=== PATIENT | female | born 1930 | race Caucasian/White ===

== ENCOUNTER 2018-07-04 12:22 | Inpatient (IN) | payer OTHER, BC ==
[~2018-07-04] VITALS: Ht 180.3 cm; Wt 72.6 kg
[2018-07-04 12:23] VITALS: BP 157/132
[2018-07-04] MEDS ORDERED: OXYCODONE HCL5 MG PO (12:32)
[2018-07-04] MEDS ORDERED: ATORVASTATIN CA40 MG PO (12:33)
[2018-07-04] MEDS ORDERED: CELEBREX 200 M200 M1 PO (12:33)
[2018-07-04] MEDS ORDERED: PLAVIX 75 MG TA75 M1 PO (12:33)
[2018-07-04] MEDS ORDERED: TYLENOL EXTRA500 MG PO (12:33)
[2018-07-04] MEDS ORDERED: CLARITIN10 MG PO (12:34)
[2018-07-04] MEDS ORDERED: FLONASE 0.05%50 MCG NASAL (12:34)
[2018-07-04] MEDS ORDERED: NEURONTIN 300300 M1 PO (12:35)
[2018-07-04] MEDS ORDERED: JANUVIA 50 MG T50 M1 PO (12:35)
[2018-07-04] MEDS ORDERED: LISINOPRIL2.5 MG PO (12:35)
[2018-07-04] MEDS ORDERED: GLUCOTROL5 MG PO (12:35)
[2018-07-04] MEDS ORDERED: LOPRESSOR25 PO (12:36)
[2018-07-04] MEDS ORDERED: NITROGLYCERIN0.4 MG SUBLING (12:36)
[2018-07-04 13:54] LABS: ABSOLUTE NEUTROPHILS 14.8 thou/uL (1.4-8.2); BASOPHILS 0.6 % (0.0-2.0); HEMATOCRIT 36.7 % (37.0-47.0); HEMOGLOBIN 12.6 gm/dL (12.0-15.0); LYMPHOCYTES 5.5 % (24.0-44.0); MCH 29.2 pg (26.0-34.0); MCHC 34.3 g/dL (28.0-37.0); MCV 85.2 fL (80.0-100.0); PLATELET COUNT 354 thou/uL (150-400); POLYS 87.9 % (36.0-66.0); RBC 4.31 mil/uL (4.20-5.00); RDW 14.1 % (10.5-14.5); WBC 16.9 thou/uL (4.0-11.0)
[2018-07-04 14:03] LABS: CALCIUM 9.8 mg/dL (8.5-10.1); CREATININE 0.8 mg/dL (0.6-1.0)
[2018-07-04 14:08] LABS: ALBUMIN 3.5 g/dL (3.4-5.0); DIRECT BILIRUBIN 0.2 mg/dL (<0.1-0.3); TOTAL BILIRUBIN 0.9 mg/dL (<0.1-1.0)
[2018-07-04 14:09] LABS: URINE CLARITY CLEAR; URINE COLOR YELLOW; URINE SPECIFIC GRAVITY 1.025 (1.005-1.035)
[2018-07-04 14:10] LABS: URINE BILIRUBIN NEGATIVE (Negative); URINE BLOOD NEGATIVE (Negative); URINE GLUCOSE-RANDOM* NEGATIVE (Negative); URINE KETONES 1+ (Negative); URINE LEUKOCYTES-REFLEX TRACE (Negative); URINE NITRITE-REFLEX NEGATIVE (Negative); URINE PROTEIN (DIPSTICK) NEGATIVE (Negative); URINE UROBILINOGEN 0.2 E.U./dl (0.2-1.0)
[2018-07-04 16:12] VITALS: BP 109/49
[2018-07-04 18:11] VITALS: BP 97/51
--- NOTE | 2018-07-04 18:38 | NUR ---
ASSUMED CARE OF PT AT 1830. PT ARRIVED FROM ED INTO ROOM IN STABLE CONDITION. PT ORIENTED TO ROOM AND CALL LIGHT. ADMISSION ORIENTATION AND HISTORY COMPLETED. VSS. FAMILY AT BEDSIDE. BELONGINGS DOCUMENTED. PT CONFUSED, BED ALARM ON, FALL RISK PRECAUTIONS IN PLACE. WILL CONTINUE TO MONITOR.
[2018-07-04 18:47] VITALS: BP 92/48
[2018-07-04 19:41] VITALS: BP 119/67
--- NOTE | 2018-07-04 20:15 | NUR ---
Pt. pulled out her iv and just now starting to get agitated. This nurse able to restart her iv. She is alert and oriented times one to self. Pt. wanting her cat and oriented to place. Explained to pt. that cats were not allowed into the hospital. Admission assessment completed, but unable to complete some parts due to pt. cognition and mental state. Pt. becoming more irritable and unable to reorient her. She would not stay in the bed and at times would yell outloud. She has been toileted several times. Call placed to Cielo ALLAN with new order to give one time ivp haldol (see orders). Called grand- daughter (Dulce Maria) and she was informed of pt. behavior, but no family member availabe to sit with her. She expressed that this is her normal behavior. Pt. placed in wheelchair and brought out to the nurses station with staff member. Ivp haldol was given (see emar).
--- NOTE | 2018-07-04 21:00 | NUR ---
Pt. assisted to bed and then wanted to get back up. Pulling off her tele monitor. Pt. becoming aggressive with the staff. Would not follow simple tasks. supervisor refractory products updated on this pt. behavior. Pt. did settle down around 2200. Bed alarm is on. Resting quietly in the bed.
[2018-07-05] MEDS ORDERED: PROTONIX40 M1 PO (01:34)
[2018-07-05 04:54] VITALS: BP 111/32
--- NOTE | 2018-07-05 07:00 | NUR ---
Pt. rested quietly during the night when checked on during the night. She did start to yell out this am and was assisted to the bedside comode. Bed alarm is on.
[2018-07-05 07:42] VITALS: BP 102/49
--- NOTE | 2018-07-05 10:16 | NUR ---
CM CONSULTED FOR DCP. JESSEE IS A & O X 2-3 WITH FORGETFULNESS. PT UP IN BED WITH EX-DAUGHTER ROSALIO IN-LAW AT BEDSIDE PROVIDING SOME NAIL CARE FOR JESSEE, " OK TO VISIT"/JESSEE. INTRO TO CM, TRANSITION OF CARE, POST ACUTE REHAB, AND HOME HEALTH. PT AND FAMILY REPORTED " LIVE IN APARTMENT, ASSIST[place] AT [facility] [place] 4TH FLOOR, USE ELEVATOR AND IT IS WALK OUT LEVEL WITH THE HILLSIDE. USE WALKER. LAST WEEK NOTICED WHEEL CHAIR IN HER ROOM AND HAVE NOT BEEN ABLE TO SPEAK WITH SOMEONE ABOUT WHEEL CHAIR. I GO WEEKLY TO VISIT HER. FACILITY PROVIDED 3 MEALS, HELP WITH BATHING, HAS SHOWER CHAIR. HAS LIFT ALERT NECKLACE, BUT SHE DOESNT REMEMBER TO USE IT. HAS CALL LIGHT IN BATHROOM AND NEXT TO BED. THEY ASSIST WITH GIVING HER MEDICATIONS."/JESSEE AND ROSALIO. EDUCATION ON POST ACUTE AND LIST CHOICES PROVIDED. PT WOULD STATE IF SHE WOULD CONSIDER POST ACUTE OR HOME HEALTH. NOTED PT LEANING TO RIGHT SIDE IN BED, FLAT AFFECT. NOTED PT START RAISING HER VOICE TO USE THE COMMODE, REMINDER HER TO USE CALL LIGHT, SHE PUSHED WITH ASSISTANCE. CM AND FAMILY ASSISTED PT ON TO BEDSIDE COMMODE, " GOT TO GO NOW"/PT. USED GAIT BELT, QUEUING TO ASSIST PT ON TO BEDSIDE COMMODE. CM PROVIDED REPORT TO BEDSIDE NURSE RT LEANING TO RIGHT AND RIGHT SIDE WHILE SITTING ON COMMODE. WILL CONT FOLLOWING NEEDED FOR DC NEEDS.
--- NOTE | 2018-07-05 15:14 | NUR ---
Pt is very confused and would get out of bed often. Halucination are noted and pt can become combative at times, we are unable to reorient her. Pt has asked to go to the commode or the toilet to void but has not been able to do so more often than not. Pt did have 1 bm today. Pt did pull out her IV will ask MD to dc since all medication are taken orally.
--- NOTE | 2018-07-05 15:24 | NUR ---
DISCHARGE PLANNING. PATIENT WILL BENEFIT FROM POST ACUTE STAY AT DISCHARGE. REFERRAL FAXED TO [facility] [place]. CALL PLACED TO [facility] ADMISSIONS AND [facility]IA[facility] TO NOTIFY OF REFERRAL AND PATIENTS DISCHARGE NEEDS. UNIT CM/SW AWARE. FOLLOWING TO ASSIST.
[2018-07-05 20:07] VITALS: BP 123/64
--- NOTE | 2018-07-06 03:18 | NUR ---
ASSUMED CARE AT START OF SHIFT , PT AGITATED AND UNCOOPERTIVE , PO MEDICATION TAKEN TRAMADOL PO GIVEN FOR BACK AND ABD PAIN, REFUSED BLOOD SUGAR TEST. ATTEMPTED TO DISCUSSED PLAN OF CARE PT ORDERED OUT OF HER ROOM AND WAS CUSSING AND WANTED DOOR CLODED. BED ALARM PLACED ON FOR SAFETY , ROUNDED FREQ FOR SAFETY. WILL CONITNUE [facility] CURRENT PPLAN OF CARE.
[2018-07-06 05:12] VITALS: BP 115/48
[2018-07-06 05:41] LABS: HEMATOCRIT 32.9 % (37.0-47.0); HEMOGLOBIN 10.9 gm/dL (12.0-15.0); MCH 28.1 pg (26.0-34.0); MCHC 33.2 g/dL (28.0-37.0); MCV 84.6 fL (80.0-100.0); RBC 3.89 mil/uL (4.20-5.00); RDW 14.3 % (10.5-14.5); WBC 7.8 thou/uL (4.0-11.0)
[2018-07-06 06:13] LABS: FOLIC ACID 11.3 ng/mL (8.6-58.9)
[2018-07-06 08:02] VITALS: BP 111/42
--- NOTE | 2018-07-06 08:30 | NUR ---
CM VISITED WITH PT SON CHELSEA AT BEDSIDE, CONT TO HAVE TO RE-EDUCATION ON JESSEE REQUIRING REHAB BE[place] [facility] [place] [place]. PT RESTLESS IN BED, CM AND SUPERVISOR FERTILIZER REPOSITION HER IN BED AND GOT HER SET UP FOR BREAKFAST, SON SEFERINO AT BEDSIDE. WILL CONT FOLLOWING NEEDED FOR DC NEEDS. PT WILL NEED 3 MIDNIGHTS PRIOR TO DC SNF
--- NOTE | 2018-07-06 16:38 | NUR ---
ASSUMED CARE AT 0700. ALERT AND AWAKE WITH CONFUSION. RECEIVED A DOSE OF HOLDOL AM FOR AGIATION AND AGRESSIVE BEHAVIOR. SEEN BY AND THERE'S A NEW ORDER FOR LEVAQUIN. FIRST DOSE GVIEN THIS AM. PERSISTENT AGIATION AND RESTLESSNESS. FREQUENT REORIENTATION AND VISUAL CHECKS RENDERED. WILL CONT TO MONITOR FOR PROGRESS.
[2018-07-06 19:20] VITALS: BP 114/50
--- NOTE | 2018-07-07 02:54 | NUR ---
ASSUMED CARE AT START OF SHIFT PT C/O BACK PAIN WHEN UP TO BATHROOM, CONFUSION REMAINS, BUT PT APPEARS TO BE COOPERATIVE. PO MEDICATION TAKEN WITHOUT DIFFICULTY, PT EASILY TO RE-DIRECT. BED ALARM ON FOR SAFETY, FREQ CHECKS. WILL CONINTUE WITH CURRENT PLAN OF CARE.
[2018-07-07 06:52] VITALS: BP 146/60
[2018-07-07 07:37] VITALS: BP 135/60
[2018-07-07] MEDS ORDERED: SEROQUEL 25 MG25 M1 PO ×2 (11:34)
[2018-07-07] MEDS ORDERED: LEVAQUIN 500 M500 M1 PO (11:34)
[2018-07-07] MEDS ORDERED: LIDOPATCH1 EACH TRANSDERM (11:34)
[2018-07-07] MEDS ORDERED: TRAMADOL 50 MG50 MG PO (11:34)
[2018-07-07 16:12] VITALS: BP 141/57
--- NOTE | 2018-07-07 16:52 | NUR ---
PATIENT ALERT TO SELF ONLY, PLEASANTLY CONFUSED. ON ROOM AIR. UP WITH X1 ASSISTANCE AND A WALKER. PATIENT BEING TRANSFERRED TO [facility]. REPORT CALLED TO [facility]. NO SIGNS OF ACUTE DISTRESS NOTED AT THIS TIME. TRANSPORTED BY [facility].
== END 2018-07-07 17:10 | DRG 70 ==
LOC: ER 12:22 → EROBS 16:24 → 4W 16:24
PROVIDERS: Emergency Medicine; Nurse Practitioner Family; ADMIT Internal Medicine
DX: G93.40 Encephalopathy, unspecified (principal); J18.1 Lobar pneumonia, unspecified organism; E43 Unspecified severe protein-calorie malnutrition; F03.91 Unspecified dementia, unspecified severity, with behavioral disturbance; Z66 Do not resuscitate; G89.29 Other chronic pain; M54.5 Low back pain; I25.5 Ischemic cardiomyopathy; I25.10 Atherosclerotic heart disease of native coronary artery without angina pectoris; K21.9 Gastro-esophageal reflux disease without esophagitis; F29 Unspecified psychosis not due to a substance or known physiological condition; D63.8 Anemia in other chronic diseases classified elsewhere; Z96.642 Presence of left artificial hip joint; Z90.13 Acquired absence of bilateral breasts and nipples; Z90.710 Acquired absence of both cervix and uterus; Z98.42 Cataract extraction status, left eye; Z98.41 Cataract extraction status, right eye; Z88.1 Allergy status to other antibiotic agents; Z88.2 Allergy status to sulfonamides
CPT/HCPCS: 10045; 10047